=== PATIENT | female | born 1990 | race Caucasian/White ===

== ENCOUNTER 2024-11-08 05:58 | Day surgery (SDC) | payer OTHER ==
[2024-11-08] MEDS: Lactated Ringers 1,000 ML IV SCH (06:11)
[2024-11-08 06:16] LABS: HCG URINE TEST NEGATIVE (NEGATIVE)
[2024-11-08] MEDS: CEFAZOLIN 2 GM/100 ML NaCl 2 GM/100 ML IVPB IV SCH (06:40)
[2024-11-08] MEDS ORDERED: Versed 2 MG/2 ML Injection ONE (07:56)
[2024-11-08] MEDS ORDERED: propofoL IV ONE (07:57)
[2024-11-08] MEDS ORDERED: dexAMETHasone sodium phosphate ONE (07:57)
[2024-11-08] MEDS ORDERED: Zofran 4 MG/2 ML VIAL ONE (07:57)
[2024-11-08] MEDS ORDERED: SUBLIMAZE 100 MCG/2 ML ONE ×2 (07:57→08:44)
[2024-11-08] MEDS ORDERED: TORAdol 30 mg Injection ONE (07:57)
[2024-11-08] MEDS ORDERED: Xylocaine-Mpf 2% 5 Ml Vial ONE (07:59)
[2024-11-08] MEDS ORDERED: Ephedrine Sulfate 50 MG/ML ONE (08:27)
[2024-11-08] MEDS ORDERED: DEXMEDETOMIDINE 80 MCG/20ML-NS IV ONE (08:27)
[2024-11-08 10:04] VITALS: RESP 16; TEMP 96.7; O2SAT 98
[2024-11-08 10:09] VITALS: BP 120/63; PULSE 75
--- NOTE | 2024-11-11 12:36 | OP ---
SURGERY DATE/TIME: 11/08/2024 0920-2527 PREOPERATIVE DIAGNOSIS: Torn right medial meniscus. 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 PROCEDURE: Arthroscopy of the right knee with partial medial meniscectomy and chondroplasty of the medial femoral condyle. SURGEON: Stephen Minaya II, DO ANESTHESIA: General. DESCRIPTION OF PROCEDURE AND FINDINGS: The patient was identified and informed consent was obtained. The patient was taken to the operative suite and placed in a supine position on the operating table, where the general anesthetic was administered. Once an appropriate level of anesthesia had been obtained, tourniquet was placed high on the right thigh. The right lower extremity was placed in the knee chavez, prepped and draped in the usual sterile fashion. A standard time-out was taken. The leg was exsanguinated, and the tourniquet was elevated to 350 mmHg. A standard superomedial portal was created with an 11 blade, and the arthroscope was placed in through a cannula. An 18-gauge spinal needle identified the level for the inferomedial portal, which was also created with an 11 blade, and at this point, the scope was placed in through the cannula. An 18-gauge spinal needle identified the level for the portal which was also created with and 11 blade, and the knee was inspected in a systemic fashion. Suprapatellar pouch had no loose bodies or synovial hypertrophy. The undersurface of the patella and trochlear groove had no evidence of chondromalacia, and the patella sat nicely within the femoral groove at about 30 degrees of flexion. The scope was then placed into the gutters where no loose bodies or synovial hypertrophy was encountered. The scope was placed into the medial compartment where the patient did have some grade 2 and 3 chondromalacia changes, as well as a complex tear involving the posterior horn of the medial meniscus. Meniscal tear was resected with the handheld biting instruments and shaved to a smooth transition with the shaver. Chondroplasty was performed with the motorized shaver on the medial femoral condyle. Intercondylar notch region was inspected, and the anterior cruciate ligament was noted to be intact. The scope was placed into the lateral compartment where the lateral meniscus was probed throughout its entirety on both the upper and under surfaces, no evidence of flouncing or tears. There was no chondromalacia or degenerative changes noted in the lateral compartment. At this point, the knee was copiously irrigated and reinspected. No further pathology identified. The instrumentation was removed, and the portal sites were closed with interrupted 4-0 nylon suture. Adaptics, 4 x 4's, and a standard postop arthroscopy dressing applied. The patient was transferred to the cart and taken to the recovery room in satisfactory condition, having tolerated the procedure well.
== END 2024-11-08 10:45 | disposition home or self-care (01) ==
LOC: SDC 05:58
PROVIDERS: ATTEND Orthopaedic Surgery
DX: S83.241A Other tear of medial meniscus, current injury, right knee, initial encounter (principal); M94.261 Chondromalacia, right knee
CPT/HCPCS: 29881; 81025; J0690; J1100; J1885; J2250; J2405; J2704; J3010